=== PATIENT | female | born 1955 | race Caucasian/White ===

== ENCOUNTER 2023-11-08 18:24 | Emergency (ER) | payer MEDICARE, OTHER, SELFPAY ==
[2023-11-08 18:25] VITALS: BP 177/77
[2023-11-08] MEDS: NSS 500 IV (20:47)
[2023-11-08] MEDS: OMNIPAQUE 50 ML PO (20:47)
[2023-11-08 20:49] VITALS: BMI 33.4
[2023-11-08 20:51] VITALS: BP 149/76
[2023-11-08 20:57] LABS: % Basophils 0.6 % (0-2); % Eosinophils 0.8 % (0-6); % Immature Granulocytes 0.3 % (0-0.5); % Lymphocytes 21.8 % (20.5-51.1); % Neutrophils 68.5 % (42.2-75.2); Absolute Basophils 0.1 10^3/uL (0-0.2); Absolute Eosinophils 0.1 10^3/uL (0-0.7); Absolute Lymphocytes 2.2 10^3/uL (1.2-3.4); Absolute Monocytes 0.8 10^3/uL (0.1-0.6); Absolute Neutrophils 6.7 10^3/uL (1.4-6.5); Hematocrit 39.5 % (37.0-47.0); Hemoglobin 13.5 g/dL (12.0-16.0); Mean Corp Hgb Conc. 34.2 g/dL (33.0-37.0); Mean Corpuscular Hgb 31.3 pg (27.0-31.0); Mean Corpuscular Volume 91.6 fL (81.0-99.0); Mean Platelet Volume 9.6 fL (7.4-10.4); Nucleated Red Blood Cells % 0 %; Platelet Count 206 10^3/uL (130-400); Red Blood Cell Count 4.31 10^6/uL (4.20-5.40); Red Cell Dist. Width 12.9 % (11.5-14.5); White Blood Cell Count 9.8 10^3/uL (4.8-10.8)
[2023-11-08 21:00] VITALS: BP 159/82
[2023-11-08 21:20] LABS: ALT (SGPT) 19 U/L (0-35); AST (SGOT) 26 U/L (14-36); Albumin 4.2 g/dl (3.5-5.0); Alkaline Phosphatase 67 U/L (38-126); Blood Urea Nitrogen 14 mg/dl (7-17); Calcium 9.5 mg/dl (8.4-10.2); Carbon Dioxide 27 mmol/L (22-30); Chloride 105 mmol/L (98-107); Estimated Creatinine Clearance 66 ml/min; Glucose 108 mg/dl (70-99); Magnesium 1.9 mg/dl (1.6-2.3); Potassium 4.2 mmol/L (3.5-5.1); Sodium 140 mmol/L (135-145); Total Bilirubin 0.6 mg/dl (0.2-1.3); Total Protein 6.6 g/dl (6.3-8.2); eGFR > 60.00
--- NOTE | 2023-11-08 21:59 | ED.GENMED ---
History of Present Illness
General
Chief Complaint: Bowel Problem
Source: patient
Exam Limitations: none
Time Seen by Provider: 11/08/23 19:33
Nursing documentation reviewed up to this point in time: agreed with
History of Present Illness
History of Present Illness:
Patient without any significant past medical history, presents ED secondary to 1 week history of inability to have bowel movement, despite having urge, along with pressure in her rectum. Patient has taken number of scho-bdz-qdlxlng medications,
including laxative, and without successful bowel movement. Denies fever or chills. Denies abdominal pain. Denies nausea or vomiting. Denies recent change in diet. Denies recent illness. Denies previous history of similar symptoms. Patient has
never received colonoscopy.
Past History
Past History
ED Past Medical History: Other (Kidney stones)
ED Past Surgical History: Orthopedic
Social History
Tobacco: Non-smoker
Alcohol: Occasional
Drug: None
Personal:
Living: with family
Employment: Employed
Review of Systems
Review of Systems
Allergies reviewed?: Yes
All Other Systems: ROS reviewed and negative except as documented in HPI and ROS
Constitutional: Reports no symptoms
ABD/GI: Reports constipated; Denies abdominal pain, nausea or vomiting
Musculoskeletal: Reports no symptoms
Skin: Reports no symptoms
Neurological: Reports no symptoms
Phy Exam
Physical Exam
Physical Exam:
Physical Exam
General: no apparent distress, not acutely ill. afebrile
Head: nc/at. eomi
Neck: supple. normal range of motion.
Heart: s1/s2 regular rate and rhythm, no murmur. equal radial pulses.
Lungs: no acute respiratory distress. clear bilaterally
Abdomen: normal bowel sounds. not tender. no distention
Neuro: alert and oriented. no focal neurological deficits
Skin: no rash
Psychiatric: well kept. interactive and cooperative
Extremities: no edema. no calf tenderness.
Course
Orders/Labs/Results
Orders:
Orders
11/08/23 19:44
CR Obstruct Series W/pa Chest Urgent
Comment:
Reason For Exam: constipation
11/08/23 20:30
Iohexol [Omnipaque] See Protocol PO NOW STA
11/08/23 20:32
CT Abd/pel W Iv And Oral Contr Urgent
Comment:
Reason For Exam: abdominal discomfort
0.9% Sodium Chloride 500 ml [Nss] 500 ml IV BOLUS
11/08/23 20:46
Complete Blood Count/With Diff Urgent
Comprehensive Metabolic Panel Urgent
Magnesium Urgent
11/09/23 00:17
Phosphate Enema [Fleet Phosphate Enema-Adult] 135 ml .ROUTE .STK-MED ONE
11/09/23 00:31
Phosphate Enema [Fleet Phosphate Enema-Adult] 135 ml RECTAL NOW STA
11/09/23 01:23
Magnesium Citrate [Citroma] 300 ml PO ONCE ONE
Abnormal Lab Results
11/08/23
20:46
MCH 31.3 H pg
(27.0-31.0)
Absolute Neuts (auto) 6.7 H 10^3/uL
(1.4-6.5)
Absolute Monos (auto) 0.8 H 10^3/uL
(0.1-0.6)
Glucose 108 H mg/dl
(70-99)
11/08/23 20:46
11/08/23 20:46
Vital Signs
Initial and Last Documented VS:
Initial Vital Signs
Temp Pulse Resp BP Pulse Ox
98.7 F 61 18 177/77 98
11/08/23 18:25 11/08/23 18:25 11/08/23 18:25 11/08/23 18:25 11/08/23 18:25
Last Documented Vital Signs
Temp Pulse Resp BP Pulse Ox
98.7 F 62 16 130/85 98
11/08/23 18:25 11/09/23 01:36 11/09/23 01:36 11/09/23 01:36 11/09/23 01:36
MDM/Problems Addressed
MDM/Problems Addressed:
Patient with an unremarkable workup in ED, including blood work and CT scan. Patient given Fleet enema with passage of small amount of stool. Repeat abdominal exam: Soft and nontender. Patient will be discharged home with recommendation to take
magnesium citrate upon arrival, as well as treatment via [facility], as well as PCP follow-up, including potential referral to GI for an outpatient consultation.
*Critical Care Note
Total Time (30-74mins, 75-104mins- exclusive of procedures): Not Applicable
ED Attending Note
-
Portions of this chart may have been created with voice recognition software.� Occasional wrong word or��sound alike� substitutions may have occurred due to the inherent limitations of voice recognition software.
Discharge Plan
Departure
Patient Disposition: Home (Routine Discharge)
Date of Disposition: 11/09/23
Time of Disposition: 01:22
Patient with high blood pressure during this ER visit?: Yes
Discharge Problem:
Constipation
Instructions: Constipation, Adult ED
Prescriptions:
No Action
acetaminophen [Tylenol] 325 mg Tablet
325 mg PO Q6HPRN PRN (Reason: mild pain)
aspirin 325 mg capsule
325 mg PO DAILY Qty: 14 0RF
atorvastatin 20 mg tablet
20 mg PO HS Qty: 14 0RF
Referrals:
UNKNOWN - PT DOES,NOT KNOW [Family Provider] -
Stand Alone Forms: Return to Work
Activity Restrictions/Additional Instructions:
As discussed, please follow-up with your primary care within for reevaluation, including potential referral to GI physician for an outpatient consultation. In the meantime, recommend utilizing M[facility]X as an outpatient, along with increased fiber
intake.
Interventions
Interventions:
*Risk Screen - Suicide Last Done: 11/08/23 18:28
*General Assessment Last Done: 11/08/23 18:28
*Neglect/Abuse Screening Last Done: 11/08/23 18:28
ED- Fall Risk Assessment Last Done: 11/08/23 20:53
*ED COVID-19 Vaccine History Last Done: 11/08/23 18:28
*Nursing Disposition Last Done: 11/09/23 01:36
IS-Kdbzeh-Ijigqbhzjp Assessment Last Done: 11/08/23 20:53
Discharge Date and Time
Print Language: BAHAMIAN
[2023-11-08 22:00] VITALS: BP 134/83
[2023-11-09] MEDS: FLEET PHOSPHATE ENEMA-ADULT 135 ML RECTAL (00:39)
[2023-11-09] MEDS: CITROMA 300 ML PO (01:28)
[2023-11-09 01:36] VITALS: BP 130/85
== END 2023-11-09 01:50 | disposition home or self-care (01) ==
LOC: EMR 18:24
PROVIDERS: EMERGENCY PHYSICIAN Emergency Medicine
DX: K59.00 Constipation, unspecified (principal); R03.0 Elevated blood-pressure reading, without diagnosis of hypertension; Z87.442 Personal history of urinary calculi
CPT/HCPCS: 99285; 96360; 74022; 74177; 80053; 83735; 85025; Q9967